=== PATIENT | male | born 1970 | race Caucasian/White ===

== ENCOUNTER 2016-07-08 14:52 | Emergency (ER) | payer OTHER ==
[~2016-07-08 14:52] MED LIST: COLCRYS0.6 MG PO; COSOPT EYE DROPS5 ML; INDOCIN SR75 MG PO; KEFLEX PO; KETOPROFEN PO; LORTAB 5-325 M1 EACH PO; LORTAB 7.5-5001 TAB PO; NORVASC; NORVASC PO; NORVASC10 MG PO; PEPCID AC20 M2 PO; PERCOCET10 PO; PREDNISONE PO; PREDNISONE10 MG/DOSE PO; VIBRAMYCIN100 M1 PO; VICODIN PO; VOLTAREN75 MG; XALATAN; XALATAN OP; XANAX0.5 M1 PO; ZYLOPRIM; ZYLOPRIM100 MG PO; [UNRECOGNIZED DRUG - OTHER]
== END 2016-07-08 15:05 | disposition home or self-care (01) ==
LOC: SED 14:52
DX: I10 Essential (primary) hypertension (principal); M54.9 Dorsalgia, unspecified; G89.29 Other chronic pain; M10.9 Gout, unspecified; F17.200 Nicotine dependence, unspecified, uncomplicated; Z91.013 Allergy to seafood; Z88.8 Allergy status to other drugs, medicaments and biological substances
CPT/HCPCS: 99282